=== PATIENT | male | born 1995 | race Caucasian/White ===

== ENCOUNTER 2016-09-07 14:21 | Emergency (ER) | payer OTHER ==
[~2016-09-07] VITALS: Ht 167.6 cm; Wt 86.2 kg
[~2016-09-07 14:21] MED LIST: ATARAX25 MG PO; BACTRIM DS 8001 TA1 PO; BACTRIM DS 8001 TAB PO; BACTROBAN CREAM15 GM NAS; BACTROBAN NASAL1 GM NS; CEPHALEXIN500 M1 PO; HYDROCODONE BIT1 T11 PO; KEFLEX500 MG PO; MEDROL DOSEPAK4 MG PO; MOTRIN600 MG PO; MOTRIN800 MG PO; Motrin,Rufen800 MG PO; NKHM; NORCO 5-325 TA1 EACH PO; PEPCID20 MG PO; PREDNICOT10 MG PO; PREDNISONE20 MG PO; TYLENOL W/CODE480 ML PO
[2016-09-07 14:38] VITALS: BP 154/94
[2016-09-07] MEDS ORDERED: BACTRIM DS 8001 TA1 PO (14:54)
== END 2016-09-07 15:11 | disposition home or self-care (01) ==
LOC: ED 14:21
DX: J02.9 Acute pharyngitis, unspecified (principal); F17.200 Nicotine dependence, unspecified, uncomplicated; Z88.1 Allergy status to other antibiotic agents

== ENCOUNTER 2017-02-22 14:37 | Emergency (ER) | payer OTHER ==
[~2017-02-22] VITALS: Ht 177.8 cm; Wt 90.7 kg
[2017-02-22 15:05] LABS: BILIRUBIN NEGATIVE (NEGATIVE); BLOOD NEGATIVE (NEGATIVE); CLARITY CLEAR (CLEAR); COLOR YELLOW (YELLOW); GLUCOSE NEGATIVE (NEGATIVE); KETONE NEGATIVE (NEGATIVE); LEUKO ESTERASE NEGATIVE (NEGATIVE); NITRITE NEGATIVE (NEGATIVE); PH 5.5 (5.0-9.0); SPECIFIC GRAVITY 1.015 (1.005-1.030); UROBILINOGEN 0.2 E.U./dl (0.2-1.0)
[2017-02-22 15:12] LABS: BACTERIA 1+; EPITHELIAL CELLS 0-2; RBC 0-2 rbc/hpf (0-2); WBC 16-20 wbc/hpf (0-5)
[2017-02-22 15:49] LABS: BASO # 0.1 10*3/uL (0.0-0.1); BASO % 0.5 % (0.0-1.0); EOS # 0.3 10*3/uL (0.0-0.4); EOS % 2.2 % (1.0-4.0); HEMATOCRIT 42.3 % (42.0-52.0); HEMOGLOBIN 15.2 g/dl (14.0-18.0); LYMPH # 1.9 10*3/uL (1.3-4.4); LYMPH % 15.1 % (27.0-41.0); MEAN CELL VOLUME 84.1 fl (80.0-94.0); MEAN CORPUSCULAR HGB 30.2 pg (27.0-31.0); MEAN CORPUSCULAR HGB CONC 35.9 g/dl (33.0-37.0); MONO # 1.3 10*3/uL (0.1-1.0); MONO % 10.2 % (3.0-9.0); NEUT # 8.7 10*3/uL (2.3-7.9); PLATELET COUNT AUTOMATED 276 10*3/uL (130-400); RED BLOOD COUNT 5.03 10*6/uL (4.50-5.90); RED CELL DISTRI WIDTH 12.1 % (0-14.5); WHITE BLOOD COUNT 12.2 10*3/uL (4.8-10.8)
[2017-02-22 16:05] LABS: ALBUMIN 3.9 gm/dl (3.1-4.5); ALKALINE PHOSPHATASE 93 U/L (45-117); BUN 16 mg/dl (7-24); CHLORIDE 103 mmol/L (98-107); CREATININE 1.57 mg/dL (0.70-1.30); POTASSIUM 4.4 mmol/L (3.5-5.1); SGOT/AST 13 IU/L (3-35); SGPT/ALT 33 U/L (12-78); SODIUM 140 mmol/L (136-145); TOTAL PROTEIN 8.1 gm/dL (6.4-8.2)
[2017-02-22 18:20] VITALS: BP 146/86
== END 2017-02-22 18:47 | disposition home or self-care (01) ==
LOC: ED 14:37
PROVIDERS: Nurse Practitioner Family
DX: K59.00 Constipation, unspecified (principal); F17.200 Nicotine dependence, unspecified, uncomplicated; Z79.899 Other long term (current) drug therapy; Z88.1 Allergy status to other antibiotic agents

== ENCOUNTER 2018-11-25 10:16 | Emergency (ER) | payer SELFPAY ==
[~2018-11-25] VITALS: Ht 167.6 cm; Wt 86.2 kg
[2018-11-25 10:16] VITALS: BP 167/97
[2018-11-25] MEDS ORDERED: CIPRO500 MG PO (11:41)
== END 2018-11-25 12:01 | disposition home or self-care (01) ==
LOC: ED 10:16
DX: S90.811A Abrasion, right foot, initial encounter (principal); J45.909 Unspecified asthma, uncomplicated; Z88.1 Allergy status to other antibiotic agents; W20.8XXA Other cause of strike by thrown, projected or falling object, initial encounter; Y93.89 Activity, other specified; Y92.89 Other specified places as the place of occurrence of the external cause; Y99.8 Other external cause status

== ENCOUNTER 2019-01-04 01:03 | Emergency (ER) | payer SELFPAY ==
[~2019-01-04] VITALS: Ht 175.2 cm; Wt 77.1 kg
[~2019-01-04 01:03] MED LIST changes: +CIPRO500 MG PO
[2019-01-04] MEDS ORDERED: ZYRTEC10 MG PO (02:31)
[2019-01-04] MEDS ORDERED: PREDNISONE10 MG PO (02:31)
[2019-01-04] MEDS ORDERED: ATARAX,VISTARIL50 MG PO (02:43)
[2019-01-04 02:55] VITALS: BP 112/76
== END 2019-01-04 02:44 | disposition home or self-care (01) ==
LOC: ED 01:03
DX: T78.40XA Allergy, unspecified, initial encounter (principal); J45.909 Unspecified asthma, uncomplicated; Z88.1 Allergy status to other antibiotic agents; X58.XXXA Exposure to other specified factors, initial encounter

== ENCOUNTER 2021-06-26 00:07 | Emergency (ER) | payer OTHER ==
[~2021-06-26] VITALS: Ht 152.4 cm; Wt 77.1 kg
[~2021-06-26 00:07] MED LIST changes: +ATARAX,VISTARIL50 MG PO; +PREDNISONE10 MG PO; +ZYRTEC10 MG PO
[2021-06-26 00:22] VITALS: BP 152/83
[2021-06-26] MEDS ORDERED: CLINDAMYCIN HC300 MG PO (00:33)
[2021-06-26] MEDS ORDERED: NAPROSYN500 MG PO (00:33)
== END 2021-06-26 00:48 | disposition home or self-care (01) ==
LOC: ED 00:07
DX: K08.89 Other specified disorders of teeth and supporting structures (principal); Z88.1 Allergy status to other antibiotic agents

== ENCOUNTER 2021-09-14 12:00 | Emergency (ER) | payer OTHER ==
[~2021-09-14] VITALS: Wt 86.2 kg
[~2021-09-14 12:00] MED LIST changes: +CLINDAMYCIN HC300 MG PO; +NAPROSYN500 MG PO
[2021-09-14 12:21] VITALS: BP 148/99
[2021-09-14] MEDS ORDERED: CLEOCIN HCL150 MG PO (12:47)
== END 2021-09-14 13:31 | disposition home or self-care (01) ==
LOC: ED 12:00
DX: K04.7 Periapical abscess without sinus (principal); Z88.1 Allergy status to other antibiotic agents